=== PATIENT | female | born 1950 | race Caucasian/White ===

== ENCOUNTER → 2016-11-15 | Outpatient (CLI) | payer MEDICARE, OTHER ==
[~2016-11-15] MED LIST: ASP81TEC PO; CHOL10003 PO; DULO60CA6 PO; ESTR1TAB; HYDR1TAB8 OP; LISI10TA PO; LISI1TAB10 PO; LVT.05T PO; NFMET1000 PO; OLME20TA5; SITA1TAB6 PO; SULF1TAB35 PO
--- NOTE | 2016-11-15 14:46 | Diagnostic Imaging Report ---
PROCEDURE: MRI right joint upper extremity without contrast. TECHNIQUE: Multiplanar, multisequence non contrast-enhanced MRI of the right upper extremity was accomplished. INDICATION: Right shoulder pain. FINDINGS: There is susceptibility artifact seen in the humeral head related to metallic anchors from prior rotator cuff repair. There is no os acromiale or Hill-Sachs deformity. The acromioclavicular joint demonstrates prominent capsular hypertrophy with small inferior osteophytes. There is slight superior subluxation of the humeral head compared to the glenoid. There is mild distention of the subacromial subdeltoid bursa. There is increased signal in the distal infraspinatus and supraspinatus tendons compatible with undersurface and bursal-sided partial tears. There is also a prominent intrasubstance tear with partial central fibrous retraction seen and fluid within the infraspinatus tendon, best seen on oblique coronal image #10. No significant full-thickness or retracted tear. The subscapularis tendon demonstrates undersurface partial tears. There is mild subluxation of the long head biceps tendon abutting the medial aspect of the bicipital groove and associated with increased signal in the tendon itself suggestive of tendinosis or partial tear. There is a small glenohumeral joint effusion. There is fraying suggested along the labrum suggestive of labrum degeneration. The muscle bulk around the shoulder demonstrates no significant atrophy. IMPRESSION: 1. High-grade partial tears in the supraspinatus and infraspinatus distal tendons. 2. Undersurface partial tears in the subscapularis tendon. 3. 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 Dictated by: Dictated on workstation # [id number]
== END ==
LOC: RAD 13:23
PROVIDERS: ATTEND Nurse Practitioner
DX: M75.111 Incomplete rotator cuff tear or rupture of right shoulder, not specified as traumatic (principal)
CPT/HCPCS: 73221

== ENCOUNTER → 2016-11-27 | Outpatient (CLI) | payer MEDICARE, OTHER ==
[2016-11-27 13:51] LABS: BASOPHILS # (AUTO) 0.1 10^3/uL (0.0-0.1); BASOPHILS % (AUTO) 1 % (0-10); EOSINOPHILS # (AUTO) 0.2 10^3/uL (0.0-0.3); EOSINOPHILS % (AUTO) 2 % (0-10); LYMPHOCYTES # (AUTO) 2.6 X 10^3 (1.0-4.0); LYMPHOCYTES % (AUTO) 28 % (12-44); MEAN CORPUSCULAR HEMOGLOBIN 28 PG (25-34); MEAN CORPUSCULAR HGB CONC 32 G/DL (32-36); MEAN CORPUSCULAR VOLUME 87 FL (80-99); MEAN PLATELET VOLUME 10.6 FL (7.4-10.4); MONOCYTES # (AUTO) 0.8 X 10^3 (0.0-1.0); MONOCYTES % (AUTO) 9 % (0-12); NEUTROPHILS # (AUTO) 5.5 X 10^3 (1.8-7.8); NEUTROPHILS % (AUTO) 60 % (42-75); PLATELET COUNT 330 10^3/uL (130-400); RED BLOOD COUNT 5.05 10^6/uL (4.35-5.85); RED CELL DISTRIBUTION WIDTH 13.4 % (10.0-14.5); WHITE BLOOD COUNT 9.1 10^3/uL (4.3-11.0)
[2016-11-27 14:05] LABS: ALBUMIN 4.2 G/DL (3.2-4.5); BILIRUBIN,TOTAL 0.6 MG/DL (0.1-1.0); CALCIUM 9.5 MG/DL (8.5-10.1); CREATININE SERUM 1.06 MG/DL (0.60-1.30); POTASSIUM 4.3 MMOL/L (3.6-5.0); TOTAL PROTEIN 7.3 G/DL (6.4-8.2); hs C REACTIVE PROTEIN 3.46 MG/DL (0.00-0.50)
[2016-11-30 07:37] LABS: TULAREMIA ANTIBODY <1:20
[2016-11-30 10:54] LABS: LYME AB G M 0.07 Index (0.00-0.89)
[2016-11-30 14:59] LABS: LYME AB INTERP Negative (Negative)
[2016-11-30 15:15] LABS: EHRLICHIA CHAFFEENSIS G ABY <1:16 (<1:16)
[2016-11-30 15:23] LABS: IGG ROCKY MOUNTAIN SPOTTED FEV <1:16 (<1:16); IGM ROCKY MOUNTAIN SPOTTED FEV <1:10 (<1:10)
== END ==
LOC: LAB 13:33
DX: R53.83 Other fatigue (principal); M79.1 Myalgia; R51 Headache; W57.XXXA Bitten or stung by nonvenomous insect and other nonvenomous arthropods, initial encounter; Y99.8 Other external cause status
CPT/HCPCS: 36415; 80053; 85025; 86141; 86618; 86666; 86668; 86757

== ENCOUNTER → 2018-08-23 | Outpatient (CLI) | payer MEDICARE, OTHER ==
[~2018-08-23] MED LIST changes: +DULO60CA58 PO; +INSU100I10 SQ; +LEVO125T6 PO; +METF-399 PO
== END ==
LOC: PREOP 05:38
PROVIDERS: ATTEND Specialist
DX: Z01.818 Encounter for other preprocedural examination (principal)

== ENCOUNTER 2018-08-25 07:21 | Day surgery (SDC) | payer MEDICARE, OTHER ==
[~2018-08-25] VITALS: Ht 175.3 cm; Wt 97.5 kg
[2018-08-25] MEDS ORDERED: MOXIFLOXACIN OPHTH SOLN 5 MG/ML 0.3 ML SYRINGE OP ONE (07:30)
[2018-08-25] MEDS ORDERED: LIDOCAINE PF 1% 2 ML AMP IR PRN (07:30)
[2018-08-25] MEDS ORDERED: POVIDONE (BETADINE) OPHTH SOLN 5% 30 ML OP ONE (07:30)
[2018-08-25] MEDS ORDERED: TIMOLOL MALEATE 0.5% 5 ML (TIMOPTIC) BTL OU PRN (07:30)
[2018-08-25 07:34] VITALS: BP 150/83
[2018-08-25] MEDS: TETRACAINE 0.5% OPHTH SOLN 4 ML BTL (SINGLE DOSE ONLY) OU PRN ×4 (07:43→08:10)
[2018-08-25] MEDS: PHENYLEPHRINE 10% OPHTH (NEO-SYN) 5 ML BTL OU SCH ×3 (07:54→08:10)
[2018-08-25] MEDS: CYCLOPENTOLATE 1% (CYCLOGYL) 2 ML DROPS OP SCH ×3 (07:56→08:10)
--- NOTE | 2018-08-25 08:17 | Ophthalmologist Pre-Op Note ---
Pre-Operative Progress Note H&P Reviewed The H&P was reviewed, patient examined and no changes noted. Date H&P Reviewed: Aug 25, 2018 Time H&P Reviewed: 08:17 Pre-Op Dx Cataract, Left Eye JUDY MARTINEZ MD Aug 25, 2018 08:17
[2018-08-25] MEDS ORDERED: MIDAZOLAM 2 MG/2 ML (VERSED) VIAL ONE (08:21)
[2018-08-25] MEDS ORDERED: acetaZOLAMIDE ER 500 MG CAP (DIAMOX SEQUELS) PO ONE (08:30)
--- NOTE | 2018-08-25 08:39 | Ophthalmology Operative Report ---
Cataract removal/placement IOL PREOPERATIVE DIAGNOSIS: Cataract Left Eye POSTOPERATIVE DIAGNOSIS: Cataract Left Eye PROCEDURE: Cataract removal and placement of posterior chamber implant, left eye SURGEON: Kirk Martinez ANESTHESIA: Topical with sedation COMPLICATIONS: None ESTIMATED BLOOD LOSS: Minimal DESCRIPTION OF PROCEDURE: After proper informed consent was obtained, the patient, a 68 female, was taken to the Operating Room and the left eye was anesthetized with tetracaine. The left eye was then prepped and draped in the usual manner. A wire lid speculum was placed. A paracentesis was made at the left hand position. Preservative free lidocaine was injected into the anterior chamber followed by viscoelastic. A clear corneal incision was made in the temporal position. A capsulorrhexis was preformed and the central nuclear and cortical material were removed. The posterior capsule was polished and an Mainor 24.0 [id number] was placed into the capsular bag. The residual viscoelastic was aspirated and balanced saline solution was injected into the anterior chamber. Moxifloxacin was injected into the anterior chamber. The wound was checked and found to be water tight. The patient tolerated the procedure well without complications. KIRK MARTINEZ MD Aug 25, 2018 08:39
[2018-08-25 08:50] VITALS: BP 139/87
--- NOTE | 2018-08-25 12:12 | Anesthesia-General Post-Op ---
MAC Patient Condition Mental Status/LOC: Same as Preop Cardiovascular: Satisfactory Nausea/Vomiting: Absent Respiratory: Satisfactory Pain: Controlled Complications: Absent Post Op Complications Complications None Follow Up Care/Instructions Patient Instructions None needed. Anesthesiology Discharge Order Discharge Order Patient is doing well, no complaints, stable vital signs, no apparent adverse anesthesia problems. No complications reported per nursing. JAXON BRICENO CRNA Aug 25, 2018 12:12
--- OUTSIDE RECORDS SUMMARY | 2018-08-27 08:23 | XMS REPORT | Encounter Summary ---
Author Author [facility] Organization [facility] Address Unknown Phone Unavailable Care Team Providers Care Automated Equipment Engineer Technician Name Role Phone Bradley Archer MD Unavailable Payam English MD Unavailable Neela May RN Unavailable Unavailable Megan Jamison DO Unavailable Grayson Daley MD Unavailable Rosalba Neumann RN Unavailable Unavailable Epifanio Cannon MD Unavailable Leia Huntley MD Unavailable Adelaide Flores Unavailable Unavailable Jessica Anthony RN Unavailable Unavailable Stephany Campos RN Unavailable Unavailable Pau Livingston RN Unavailable Unavailable Josephine Buckner RN Unavailable Unavailable Baldomero Parker MD Unavailable Unavailable Noelle Hong MD Unavailable Iker Soto MD PCP Reason for Visit * Auth/Cert Referred By Contact Referred To Contact Status Reason Specialty Diagnoses / Procedures Diagnoses Urge incontinence Urge incontinence [N39.41] P rocedures ME CYSTOURETHROSCOPY INJ CHEMODENERVATION BLADDER CYSTOSCOPY WITH BOTOX INJECTION OF BLADDER (200 UNITS) Encounter Details Care Team Description Date Type Department Rosa Arteaga CRNA [address] [facility] [id number] [place] [address] 06/09/2018 Anesthesia Main Operating Room Event Main [facility] 2nd fl [address] [place], [place] [id number] Anesthesia Record Responsible Anesthesiologist Anesthesia Start Time Anesthesia Stop Time Procedure Name Mitul Farrar MD 06/09/18 1517 06/09/18 1547 CYSTOSCOPY WITH BOTOX INJECTION OF BLADDER (200 UNITS) (N/A Bladder) Date Time Event Comment 1502 AN Equip Check 2017 1506 1516 Out of Pre Procedure 1517 Anes Start 1517 In Room 1519 An Start Data 1521 Start Supplemental O2 1522 Anesthesia Ready 1532 Proc Start 1544 an stop data 1547 Handoff to RN I completed my SBAR handoff to the receiving nurse. 1547 An Stop Meds Name Total lidocaine (2%) 200 mg/10mL Injection 60 mg syringe propofol (DIPRIVAN) 200 mg/ 20 mL 40 mg injection (VIAL) propofol (DIPRIVAN) infusion 186.24 mg lactated ringers infusion 500 mL * Name O2 N2O Inspired N2O * No blood administrations on file. Removal Type Details Placement Wounds 06/01/11; LO, M, LT, RT; Abdomen; 06/01/11 0000 by Gemma, (NOT for Surgical Incision Kiya, CAKE MIXER Pressure Injuries) Wounds 09/28/13; 1448; LT; Leg; Surgical 09/28/13 1448 by Homar, (NOT for Incision Luba, RN Pressure Injuries) Wounds 10/19/13; 0923; RT; Leg; Surgical 10/19/13 0923 by Fuentes, (NOT for Incision Maria, RN Pressure Injuries) Wounds 01/09/16; 0902; Perineum; Surgical 01/09/16 0902 by Balaji, (NOT for Incision Quiana, RN Pressure Injuries) Wounds 01/20/18; 1138; Perineum; Surgical 01/20/18 1138 by (NOT for Incision; no dressings Noelle Velarde, RN Pressure Injuries) 06/09/18 1635 by Eugenia Crump RN Peripheral 06/09/18; 1355; RN; L; Inner; Forearm 06/09/18 1355 by JAZLYN Boucher (inner wrist); 22 G; 1; Therapy FRANCOIS Lockett completed; 06/09/18; 1635 in this encounter Social History Date Tobacco Use Types Packs/Day Years Used Quit: 06/27/1992 Former Smoker Cigarettes 0.25 5 Smokeless Tobacco: Never Used Alcohol Use Drinks/Week oz/Week Comments No Sex Assigned at Date Recorded Not on file Industry Job Start Date Occupation Not on file Not on file Not on file Travel End Travel History Travel Start No recent travel history available. as of this encounter Plan of Treatment Not on fileas of this encounter Visit Diagnoses Not on filein this encounter Administered Medications Action Date Dose Rate Site Medication Order MAR Action 06/09/2018 3:17 PM QUENCHER OPERATOR lactated ringers infusion Given - New 1,000 mL, Intravenous, SEE ADMIN Bag INSTRUCTIONS, Starting Tue06/09/18 at 1536, Until Tue06/09/18 at 1838, Replace NPO loss per post anesthesia protocol with Lactated Ringers or Normal Saline unless otherwise ordered by physician., PACU (only) 06/09/2018 3:20 PM QUENCHER OPERATOR 60 mg lidocaine (PF) injection Given INTRA-PROCEDURE MED, Starting Tue06/09/18 at 1520, Until Tue06/09/18 at 1549, Anesthesia Intra-op 06/09/2018 3:32 PM QUENCHER OPERATOR 20,000 mcg propofol (DIPRIVAN) infusion Bolus 50 mL, Intravenous, INTRA-PROCEDURE MED(CONT), Starting Tue06/09/18 at 1522, Until Tue06/09/18 at 1549, Anesthesia Intra-op 100 mcg/kg/min 62.3 mL/hr Given - New Bag 06/09/2018 3:22 PM QUENCHER OPERATOR 06/09/2018 3:26 PM QUENCHER OPERATOR 20 mg propofol (DIPRIVAN) injection Given INTRA-PROCEDURE MED, Starting Tue06/09/18 at 1522, Until Tue06/09/18 at 1549, Anesthesia Intra-op 20 mg Given 06/09/2018 3:22 PM QUENCHER OPERATOR in this encounter
--- OUTSIDE RECORDS SUMMARY | 2018-08-27 08:23 | XMS REPORT | Encounter Summary ---
Author Author [facility] Organization [facility] Address Unknown Phone Unavailable Care Team Providers Care Outpatient Coding Specialist Name Role Phone Bradley Archer MD Unavailable [...] Soto MD PCP Reason for Visit * Reason Comments Medication Refill Encounter Details Care Team Description Date Type Department Eladia Fritz MD [address] [facility] [address] [place] [address] Overactive bladder 08/03/2018 Refill [facility] Level 2A [address] [place] [address] Social History Date Tobacco Use Types Packs/Day [...] on fileas of this encounter Visit Diagnoses Diagnosis Overactive bladder Hypertonicity of bladder in this encounter
--- OUTSIDE RECORDS SUMMARY | 2018-08-27 08:23 | XMS REPORT | Encounter Summary ---
Author Author [facility] Organization [facility] Address Unknown Phone Unavailable Care Team Providers Care Specialty Transformer Assembler Name Role Phone Bradley Archer MD Unavailable [...] Urge incontinence Urge incontinence [N39.41] P rocedures [place] CYSTOURETHROSCOPY INJ CHEMODENERVATION BLADDER CYSTOSCOPY WITH BOTOX INJECTION OF BLADDER (200 UNITS) Encounter Details Care Team Description Date Type Department Eladia Fritz MD [address] [facility] [address] [place] [address] CYSTOSCOPY WITH BOTOX INJECTION OF BLADDER (200 UNITS) 06/09/2018 Surgery Main Operating Room [facility] 2nd ma [address] [place] [address] Social History Date Tobacco Use Types Packs/Day Years Used Quit: 06/27/1992 Former Smoker Cigarettes 0.25 5 Smokeless Tobacco: Never Used Alcohol Use Drinks/Week oz/Week Comments No Sex Assigned at Date Recorded Not on file Industry Job Start Date Occupation Not on file Not on file Not on file Travel End Travel History Travel Start No recent travel history available. as of this encounter Last Filed Vital Signs Time Taken Vital Sign Reading 06/09/2018 4:00 PM SANITARIAN Blood Pressure 104/60 06/09/2018 4:00 PM SANITARIAN Pulse 66 06/09/2018 4:00 PM SANITARIAN Temperature 36.9 C (98.4 F) - Respiratory Rate - 06/09/2018 4:00 PM SANITARIAN Oxygen Saturation 96% - Inhaled Oxygen - Concentration 06/09/2018 1:40 PM SANITARIAN Weight 103.9 kg (229 lb) 06/09/2018 1:40 PM SANITARIAN Height 175.3 cm (5' 9") 06/09/2018 1:40 PM SANITARIAN Body Mass Index 33.82 in this encounter Medications at Time of Discharge Start Date End Date Medication Sig Dispensed Refills 08/09/2017 acetaminophen (TYLENOL Take 1 tablet 0 EXTRA STRENGTH) 500 mg by mouth tablet every 6 hours as needed for Pain. Max of 4,000 mg of acetaminophen in [address] (CYMBALTA) Take 60 mg by 0 60 mg PO capsule mouth daily. Takes in am insulin glargine (LANTUS Inject 28 0 SOLOSTAR) 100 unit/mL (3 Units into mL) injection PEN area(s) as directed at bedtime daily. Indications: TYPE 2 DIABETES MELLITUS levothyroxine (SYNTHROID) Take 125 mcg 0 125 mcg PO tablet by mouth daily. lisinopril/hydrochlorothi Take 1 Dose 0 azide (ZESTORETIC) 20/25 by mouth tablet 1 Dose daily. metFORMIN (GLUCOPHAGE) Take 1,000 mg 0 1,000 mg tablet by mouth twice daily with meals. OMEPRAZOLE/SODIUM Take 1 Tab by 0 BICARBONATE (ZEGERID OTC mouth daily PO) as needed. 06/09/2018 oxyCODONE (ROXICODONE, Take one 5 tablet 0 OXY-IR) 5 mg tablet tablet by mouth every 4 hours as needed for Pain 08/18/2017 08/03/2018 oxybutynin chloride Take 1 tablet 90 tablet 3 (DITROPAN) 5 mg by mouth at tabletIndications: bedtime Overactive bladder daily. as of this encounter Plan of Treatment Not on fileas of this encounter Procedures Comments Procedure Name Priority Date/Time Associated Diagnosis CYSTOURETHROSCOPY WITH 06/09/2018 Urge incontinence INJECTION FOR 3:56 PM SANITARIAN CHEMODENERVATION OF THE BLADDER POC GLUCOSE 06/09/2018 3:49 PM SANITARIAN POC GLUCOSE 06/09/2018 1:55 PM SANITARIAN TELEMETRY STRIPS-SCAN 06/09/2018 12:00 AM SANITARIAN in this encounter Results * POC GLUCOSE (06/09/2018 3:49 PM SANITARIAN) Glucose, POC 86 70 - 100 MG/DL [facility] Performing Organization Address [facility] Phone [facility] [address] [place] [address] * POC GLUCOSE (06/09/2018 1:55 PM SANITARIAN) Glucose, POC 96 70 - 100 MG/DL [facility] Performing Organization Address [facility] [address] [place] [phone] * TELEMETRY STRIPS-SCAN (06/09/2018 12:00 AM SANITARIAN) Narrative Performed At Ordered by an unspecified provider. in this encounter Visit Diagnoses Diagnosis Urge incontinence in this encounter Admitting Diagnoses Diagnosis Urge incontinence in this encounter Administered Medications Action Date Dose Rate Site Medication Order MAR Action lactated ringers infusion 1,000 mL, 1,000 mL, Intravenous, at 20 mL/hr, CONTINUOUS, Starting Tue06/09/18 at 1345, Until Tue06/09/18 at 1838, Pre-Op 06/09/2018 3:17 PM SANITARIAN lactated ringers infusion Given - New 1,000 mL, Intravenous, SEE ADMIN Bag INSTRUCTIONS, Starting Tue06/09/18 at 1536, Until Tue06/09/18 at 1838, Replace NPO loss per post anesthesia protocol with Lactated Ringers or Normal Saline unless otherwise ordered by physician., PACU (only) 06/09/2018 3:33 PM SANITARIAN 20 mL lidocaine (XYLOCAINE) 2 % jelly Given (URO-JET) INTRA-PROCEDURE MED, Starting Tue06/09/18 at 1533, Until Tue06/09/18 at 1545, Intra-op lidocaine PF 1% (10 mg/mL) injection 0.1-2 mL 0.1-2 mL, Injection, NEEDED, Starting Tue06/09/18 at 1424, Until Tue06/09/18 at 1838, Other..., for IV insertion, Pre-Op 06/09/2018 3:45 PM SANITARIAN 200 Units ONAbotulinum toxin A (BOTOX) injection Given INTRA-PROCEDURE MED, Starting Tue06/09/18 at 1545, Until Tue06/09/18 at 1545, Intra-op 06/09/2018 2:00 PM SANITARIAN 1,000 mL 20 mL/hr sodium chloride 0.9 % infusion Given - New 1,000 mL, 1,000 mL, Intravenous, at 20 Bag mL/hr, ONCE, 1 dose, Tue06/09/18 at 1330, Pre-Op 06/09/2018 2:00 PM SANITARIAN 1,000 mL 20 mL/hr sodium chloride 0.9 % infusion Given - New 1,000 mL, 1,000 mL, Intravenous, at 20 Bag mL/hr, CONTINUOUS, Starting Tue06/09/18 at 1415, Until Tue06/09/18 at 1838, Pre-Op 06/09/2018 3:33 PM SANITARIAN 3,000 mL sodium chloride 0.9 % irrigation bag Given INTRA-PROCEDURE MED, Starting Tue06/09/18 at 1533, Until Tue06/09/18 at 1545, Intra-op in this encounter
--- OUTSIDE RECORDS SUMMARY | 2018-08-27 08:23 | XMS REPORT | Clinical Summary ---
Author Author [facility] Organization [facility] Address Unknown Phone Unavailable Care Team Providers Care Lay Out Maker Name Role Phone Bradley Archer MD Unavailable [...] Hong MD Unavailable Iker Soto MD PCP Source Comments Some departments are not documenting in the electronic medical record. If you do not see the information that you expected, contact Release of Information in the Health Information Management department at [phone] for further assistance in locating additional records.[facility] Allergies No Known Allergies Medications End Date Status Medication Sig Dispensed Refills Start Date Active levothyroxine (SYNTHROID) Take 125 mcg 0 125 mcg PO tablet by mouth daily. Active lisinopril/hydrochlorothi Take 1 Dose 0 azide (ZESTORETIC) 20/25 by mouth tablet 1 Dose daily. Active duloxetine DR (CYMBALTA) Take 60 mg by 0 60 mg PO capsule mouth daily. Takes in am Active OMEPRAZOLE/SODIUM Take 1 Tab by 0 BICARBONATE (ZEGERID OTC mouth daily PO) as needed. Active metFORMIN (GLUCOPHAGE) Take 1,000 mg 0 1,000 mg tablet by mouth twice daily with meals. Active insulin glargine (LANTUS Inject 28 0 SOLOSTAR) 100 unit/mL (3 Units into mL) injection PEN area(s) as directed at bedtime daily. Indications: TYPE 2 DIABETES MELLITUS Active acetaminophen (TYLENOL Take 1 tablet 0 EXTRA STRENGTH) 500 mg by mouth 8 tablet every 6 hours as needed for Pain. Max of 4,000 mg of acetaminophen in 24 hours. Active oxyCODONE (ROXICODONE, Take one 5 tablet 0 OXY-IR) 5 mg tablet tablet by 8 mouth every 4 hours as needed for Pain Active oxybutynin chloride TAKE 1 TABLET 90 tablet 3 (DITROPAN) 5 mg AT BEDTIME 9 tabletIndications: Overactive bladder 08/03/2018 Discontinued oxybutynin chloride Take 1 tablet 90 tablet 3 (DITROPAN) 5 mg by mouth at 8 tabletIndications: bedtime Overactive bladder daily. Active Problems Problem Noted Date Urge incontinence 01/20/2018 Overview: Added automatically from request for surgery [id number] Overactive bladder 02/11/2017 Overview: Added automatically from request for surgery [id number] Elective procedure for unacceptable cosmetic appearance 08/31/2016 Dermatofibroma of lower leg 02/18/2015 Mixed urge and stress incontinence 10/02/2014 Overview: Patient s/p abdominoplasty, SSLF, rectus PVS 06/02/11 Now with complaints of CORKY, also significant fecal voiding issues. Trialed sanctura 60mg x 1 month-> urgency and UUI improved in day, yet not night UDS +/- pessary revealed large capacity; complete emptying; +LPP with small leak; DO with large volume leak Botox 100u (12/06/14): improved daytime urgency and UUI, yet night continues botox 150u (06/10/15): urgency and daytime UUI resolved; nocturia down to only once nightly with occasional UUI at night L ast Assessment & Plan: OR for botox 150u on 01/09/16 ERRONEOUS ENCOUNTER--DISREGARD 05/11/2012 Varicose veins of lower extremities with other complications 11/23/2011 Pain in limb 11/23/2011 Incontinence overflow, stress female 06/24/2011 Diabetes mellitus 06/01/2011 Depression 06/01/2011 Hypothyroidism 06/01/2011 Hypertension 06/01/2011 Other plastic surgery for unacceptable cosmetic appearance 05/25/2011 Encounters Care Team Description Date Type Specialty Eladia Fritz MD Overactive bladder 08/03/2018 Refill Urology Eladia Fritz MD CYSTOSCOPY WITH BOTOX INJECTION OF BLADDER (200 UNITS) 06/09/2018 Surgery Rosa Arteaga, PERFORATING MACHINE OPERATOR 06/09/2018 Anesthesia Event Eladia Fritz MD Urge incontinence 06/09/2018 Hospital Encounter from Last 3 Months Family History Medical History Relation Name Comments Cancer Father Thyroid Disease Mother Relation Name Status Comments Father Mother Social History Date Tobacco Use Types Packs/Day Years Used Quit: 06/27/1992 Former Smoker Cigarettes 0.25 5 Smokeless Tobacco: Never Used Tobacco Cessation: Counseling Given: Yes Alcohol Use Drinks/Week oz/Week Comments No Sex Assigned at Date Recorded Not on file Industry Job Start Date Occupation Not on file Not on file Not on file Travel End Travel History Travel Start No recent travel history available. Last Filed Vital Signs Time Taken Vital Sign Reading 06/09/2018 4:00 PM FANS CLERK Blood Pressure 104/60 06/09/2018 4:00 PM FANS CLERK Pulse 66 06/09/2018 4:00 PM FANS CLERK Temperature 36.9 C (98.4 F) 03/19/2015 8:35 AM CDT Respiratory Rate 14 06/09/2018 4:00 PM FANS CLERK Oxygen Saturation 96% - Inhaled Oxygen - Concentration 06/09/2018 1:40 PM FANS CLERK Weight 103.9 kg (229 lb) 06/09/2018 1:40 PM FANS CLERK Height 175.3 cm (5' 9") 06/09/2018 1:40 PM FANS CLERK Body Mass Index 33.82 Plan of Treatment Health Maintenance Due Date Last Done Comments HEPATITIS C SCREENING 1951 DILATED EYE EXAM 1969 DTAP/TDAP VACCINES (1 - 1969 Tdap) FOOT EXAM 1969 HBA1C 1969 SHINGLES RECOMBINANT 2001 VACCINE (1 of 2) BREAST CANCER SCREENING 05/11/2012 05/11/2011 PHYSICAL (COMPREHENSIVE) 05/25/2012 05/25/2011 EXAM OSTEOPOROSIS 2016 SCREENING/MONITORING PNEUMONIA (PCV13/PPSV23) 2016 VACCINES (1 of 2 - PCV13) INFLUENZA VACCINE 01/25/2019 COLORECTAL CANCER 02/24/2025 02/24/2015, 12/23/2010, 10/13/2010 SCREENING Procedures Comments Procedure Name Priority Date/Time Associated Diagnosis CYSTOURETHROSCOPY WITH 06/09/2018 Urge incontinence INJECTION FOR 3:56 PM FANS CLERK CHEMODENERVATION OF THE BLADDER POC GLUCOSE 06/09/2018 3:49 PM FANS CLERK POC GLUCOSE 06/09/2018 1:55 PM FANS CLERK TELEMETRY STRIPS-SCAN 06/09/2018 12:00 AM FANS CLERK from Last 3 Months Results * POC GLUCOSE (06/09/2018 3:49 PM FANS CLERK) Only the most recent of 2 results within the time period is included. Glucose, POC 86 70 - 100 MG/DL [facility] Performing Organization Address [facility] [address] [place] [address] * TELEMETRY STRIPS-SCAN (06/09/2018 12:00 AM FANS CLERK) Narrative Performed At Ordered by an unspecified provider. from Last 3 Months Insurance Payer Benefit Subscriber ID Type Phone Address Plan / Group MEDICARE MEDICARE xxxxxxxxxx Medicare PART A AND B AETNA AETNA xxxxxxxxxx SUPPLEMENT Advance Directives Patient has advance care planning documents, and code status on file. For more information, please contact: [facility] [address] [place] [address] Date Inactivated Comments Code Status Date Activated 06/05/2011 7:27 PM Full Code 06/01/2011 9:51 PM Provider has discussed Code Status Yes w/Patient or Family?
--- OUTSIDE RECORDS SUMMARY | 2018-08-27 08:24 | XMS REPORT | Encounter Summary ---
Author Author [facility] Organization [facility] Address Unknown Phone Unavailable Care Team Providers Care Orchestra Director Name Role Phone Bradley Archer MD Unavailable [...] Urge incontinence Urge incontinence [N39.41] P rocedures NE CYSTOURETHROSCOPY INJ CHEMODENERVATION BLADDER CYSTOSCOPY WITH BOTOX INJECTION OF BLADDER (200 UNITS) Encounter Details Care Team Description Date Type Department Eladia Fritz MD [address] [facility] [address] [place] [address] Urge incontinence 06/09/2018 Hospital Main Operating Room Encounter [facility] Hospital 2nd fl [address] [place] [address] Social History Date Tobacco Use Types Packs/Day [...] Taken Vital Sign Reading 06/09/2018 4:00 PM AUTOCLAVE OPERATOR Blood Pressure 104/60 06/09/2018 4:00 PM AUTOCLAVE OPERATOR Pulse 66 06/09/2018 4:00 PM AUTOCLAVE OPERATOR Temperature 36.9 C (98.4 F) - Respiratory Rate - 06/09/2018 4:00 PM AUTOCLAVE OPERATOR Oxygen Saturation 96% - Inhaled Oxygen - Concentration 06/09/2018 1:40 PM AUTOCLAVE OPERATOR Weight 103.9 kg (229 lb) 06/09/2018 1:40 PM AUTOCLAVE OPERATOR Height 175.3 cm (5' 9") 06/09/2018 1:40 PM AUTOCLAVE OPERATOR Body Mass Index 33.82 in this encounter [...] Overactive bladder daily. as of this encounter Progress Notes * Chelsey Tijerina RN - 05/30/2018 11:40 AM AUTOCLAVE OPERATOR PAC phone triage completed with patient for surgery on 06/09/[address] Fritz. Medications, allergies and medical history reviewed and updated in chart. Had last surgery on 01/20/18 and denies changes to medical or functional status. She states her normal FBG averages 112-120 daily. Can climb 2 flights of stairs without becoming symptomatic. Denies chest pain, AVERY, palpitations or URI symptoms. No PAC visit indicated. Preop and medication instructions reviewed with patient. No vitamins or supplements for 14 days and no NSAIDS for 7 days before surgery. Will take normal dose of Lantus on evening before surgery and hold Lisinopril/HCTZ and Metformin on DOS. NPO after 11 pm the night before surgery but ok to drink water until 2 hours before arrival at hospital. Patient verbalized understanding and declined copy of instructions CLAVE OPERATOR in this encounter H&P Notes * Eladia Fritz MD - 06/09/2018 12:55 PM AUTOCLAVE OPERATOR Admission History and Physical Examination Name: Jaelyn Coe Admission Date: (Not on file) Assessment/Plan: Principal Problem: Urge incontinence Plan: - To OR for intradetrusor Botox injection, 200 units - Consented - Ancef fashion director party plan sales to OR __ Primary Care Physician: Iker Soto Chief Complaint: Incontinence History of Present Illness: Jaelyn Coe is a 68 y.o. female with an extensive urologic history, including Rectus fascial graft harvest, Transvaginal urethrolysis, Sacrospinous ligament fixation with Pelvicol graft, and Pubovaginal sling cystourethropexy with rectus fascial graft on 05/25/11, with plastic surgery performing abdominoplasty at same time for POP and incontinence. She had subsequent urge incontinence which has been managed with botox injections into the bladder. She lastunderwent botox injection 01/20/18. She states that this controlled her symptoms well for 4.5- 5 months. She had no issues with urinary retention after increasing her dose to 200 units. She denies any recent symptoms or concerns. I personally reviewed the patient's past medical history, surgical history, family history, social history, medications, and allergies. History of Present Illness Past Medical History: Diagnosis Date Bladder problem overactive bladder Depression (disease) DM (diabetes mellitus) (HCC) Hypertension Thyroid disease Urinary tract infection Past Surgical History: Procedure Laterality Date NE COLPOPEXY VAGINAL EXTRAPERITONEAL APPROACH 06/01/2011 NE SLING OPERATION STRESS INCONTINENCE 06/01/2011 NE TISSUE GRAFTS OTHER 06/01/2011 NE URETHROLSS TRVG SEC OPN W/CSTO 06/01/2011 CYSTOCELE REPAIR FOOT SURGERY bunionectomy & nerve clipped betw 2nd & 3rd toe HX SECTION HX KNEE SURGERY left PARTIAL THYROIDECTOMY RECTOCELE REPAIR ROTATOR CUFF REPAIR Family History Problem Relation Age of Onset Thyroid Disease Mother Cancer Father Social History Socioeconomic History Marital status: Spouse name: Not on file Number of children: Not on file Years of education: Not on file Highest education level: Not on file Social Needs Financial resource strain: Not on file Food insecurity - worry: Not on file Food insecurity - inability: Not on file Transportation needs - medical: Not on file Transportation needs - non-medical: Not on file Occupational History Not on file Tobacco Use Smoking status: Former Smoker Packs/day: 0.25 Years: 5.00 Pack years: 1.25 Types: Cigarettes Last attempt to quit: 06/27/1992 Years since quittin.9 Smokeless tobacco: Never Used Substance and Sexual Activity Alcohol use: No Drug use: No Sexual activity: Not Currently Other Topics Concern Not on file Social History Narrative Not on file Immunizations (includes history and patient reported): There is no immunization history on file for this patient. Allergies: Patient has no known allergies. Medications: No medications prior to admission. Review of Systems Constitution: Negative for chills and fever. Gastrointestinal: Negative for nausea and vomiting. Genitourinary: Positive for bladder incontinence, frequency and urgency. Negative for dysuria. All other systems reviewed and are negative. Physical Exam Constitutional: She is oriented to person, place, and time. She appears well- developed and well-nourished. HENT: Head: Normocephalic and atraumatic. Eyes: EOM are normal. Neck: Normal range of motion. Cardiovascular: Normal rate. Pulmonary/Chest: Effort normal. No respiratory distress. Musculoskeletal: Normal range of motion. Neurological: She is alert and oriented to person, place, and time. Skin: Skin is warm and dry. Psychiatric: She has a normal mood and affect. Her behavior is normal. Judgment and thought content normal. Vital Signs: Last Filed In 24 Hours Vital Signs: 24 Hour Range Lab/Radiology/Other Diagnostic Tests: 24-hour labs: No results found for this visit on 06/09/18 (from the past 24 hour(s)). Pertinent radiology reviewed. Rakan Pickens MD Pager [phone] ATTESTATION I personally performed the santacruz portions of the E/M visit, discussed case with resident and concur with resident documentation of history, physical exam, assessment, and treatment plan unless otherwise noted. Staff name: Eladia Fritz MD CLAVE OPERATOR in this encounter Miscellaneous Notes * Discharge Instructions - Eugenia Crump RN - 06/09/2018 4:31 PM AUTOCLAVE OPERATOR Discharge instructions reviewed with patient and patients , [facility] at bedside. All questions answered at this time. Discharge instructions and prescriptions given to [facility] upon discharge. CLAVE OPERATOR * Procedures (Immed Post or Bedside) - Eladia Fritz MD - 06/09/2018 3: 48 PM AUTOCLAVE OPERATOR Brief Operative Note Name: Jaelyn Coe is a 68 y.o. female : 1950 DATE OF OPERATION: 06/09/2018 Date: 06/09/2018 Preoperative Dx: Urge incontinence [N39.41] Post-op Diagnosis * Urge incontinence [N39.41] Procedure(s): CYSTOSCOPY WITH BOTOX INJECTION OF BLADDER (200 UNITS) Anesthesia Type: General Surgeon(s) and Role: * Eladia Fritz MD - Primary * Xuan Franco MD - Resident - Assisting Findings: Unremarkable injection of 200u of botox Estimated Blood Loss: No blood loss documented. Specimen(s) Removed/Disposition: * No specimens in log * Complications: None Implants: None Drains: None Disposition: PACU - stable Xuan Franco MD Pager [phone] ATTESTATION I performed this procedure with a resident. Staff name: Eladia Fritz MD CLAVE OPERATOR * Operative Report (Direct Entry) - Eladia Fritz MD - 06/09/2018 3:32 PM AUTOCLAVE OPERATOR OPERATIVE REPORT Name: Jaelyn Coe is a 68 y.o. female : 1950 DATE OF OPERATION: 06/09/2018 Surgeon(s) and Role: * Eladia Fritz MD - Primary * Xuan Franco MD - Resident - Assisting Preoperative Diagnosis: Urge incontinence [N39.41] Post-op Diagnosis * Urge incontinence [N39.41] Procedure(s): CYSTOSCOPY WITH BOTOX INJECTION OF BLADDER (200 UNITS) Anesthesia Type: General Indications For Procedure: 68yoF with hx of urge incontinence presents today for repeat botox injection of 200 units. Description and Findings of Operative Procedure: After obtaining informed consent, patient was brought back to the operating room and placed in the supine position. General anesthesia was induced smoothly without complication. A proper timeout was performed confirming proper patient, procedure, and laterality. Patient was moved to the dorsal lithotomy position. Patient was prepped and draped in the usual sterile fashion. All instruments were sterile. We began by placing the injection scope into the urethra and this is passed into the bladder with ease. 360 panendoscopy the bladder performance revealed no tumors stones or defects. There was no trabeculation noted. We then began to inject her Botox and were careful not to inject any large vessels. We used 200 units of Botox injected in 4 rows of 5. Patient tolerated this well afterwards there is noted to be hemostasis. The bladder was drained and patient was awoken from anesthesia. Patient was transferred to the PACU in stable condition. Dr. Fritz was present scrubbed and directed all santacruz portions of procedure. Estimated Blood Loss: No blood loss documented. Specimen(s) Removed/Disposition: * No specimens in log * Xuan Franco MD Pager [phone] ATTESTATION I performed this procedure with a resident. Staff name: Eladia Fritz MD CLAVE OPERATOR in this encounter Plan of Treatment Not on fileas of this encounter Procedures Comments Procedure Name Priority Date/Time Associated Diagnosis CYSTOURETHROSCOPY WITH 06/09/2018 Urge incontinence INJECTION FOR 3:56 PM AUTOCLAVE OPERATOR CHEMODENERVATION OF THE BLADDER POC GLUCOSE 06/09/2018 3:49 PM AUTOCLAVE OPERATOR POC GLUCOSE 06/09/2018 1:55 PM AUTOCLAVE OPERATOR TELEMETRY STRIPS-SCAN 06/09/2018 12:00 AM AUTOCLAVE OPERATOR in this encounter Results * POC GLUCOSE (06/09/2018 3:49 PM AUTOCLAVE OPERATOR) Glucose, POC 86 70 - 100 MG/DL [facility] Performing Organization Address [facility] Phone Number [facility] [address] [place] [address] * POC GLUCOSE (06/09/2018 1:55 PM AUTOCLAVE OPERATOR) Glucose, POC 96 70 - 100 MG/DL [facility] Performing Organization Address [facility] Phone Number [facility] [address] [phone] * TELEMETRY STRIPS-SCAN (06/09/2018 12:00 AM AUTOCLAVE OPERATOR) Narrative Performed At Ordered by an unspecified provider. in this encounter Visit Diagnoses Diagnosis Urge incontinence - Primary in this encounter Admitting Diagnoses Diagnosis Urge incontinence in this encounter Administered Medications Action Date Dose Rate Site Medication Order MAR Action lactated ringers infusion 1,000 mL, 1,000 mL, Intravenous, at 20 mL/hr, CONTINUOUS, Starting Tue06/09/18 at 1345, Until Tue06/09/18 at 1838, Pre-Op 06/09/2018 3:17 PM AUTOCLAVE OPERATOR lactated ringers infusion Given - New 1,000 mL, Intravenous, SEE ADMIN Bag INSTRUCTIONS, Starting Tue06/09/18 at 1536, Until Tue06/09/18 at 1838, Replace NPO loss per post anesthesia protocol with Lactated Ringers or Normal Saline unless otherwise ordered by physician., PACU (only) lidocaine PF 1% (10 mg/mL) injection 0.1-2 mL 0.1-2 mL, Injection, NEEDED, Starting Tue06/09/18 at 1424, Until Tue06/09/18 at 1838, Other..., for IV insertion, Pre-Op 06/09/2018 2:00 PM AUTOCLAVE OPERATOR 1,000 mL 20 mL/hr sodium chloride 0.9 % infusion Given - New 1,000 mL, 1,000 mL, Intravenous, at 20 Bag mL/hr, ONCE, 1 dose, Tue06/09/18 at 1330, Pre-Op 06/09/2018 2:00 PM AUTOCLAVE OPERATOR 1,000 mL 20 mL/hr sodium chloride 0.9 % infusion Given - New 1,000 mL, 1,000 mL, Intravenous, at 20 Bag mL/hr, CONTINUOUS, Starting Tue06/09/18 at 1415, Until Tue06/09/18 at 1838, Pre-Op in this encounter
--- OUTSIDE RECORDS SUMMARY | 2018-08-27 08:24 | XMS REPORT | Continuity of Care Document ---
Author Author [facility] Organization [facility] Address Unknown Phone Unavailable Allergies Active Description Code Type Severity Reaction Onset Reported/Identified Relationship to Patient Clinical Status Yes NO KNOWN DRUG ALLERGIES UNKNOWN NO KNOWN DRUG ALLERG Yes No Known Drug Allergies [id number] Drug Allergy Mild N/A 10/27/2008 Medications Medication Packaging Start Date Stop Date Route Dosage Sig HYDROCODONE/APAP 5MG/325MG TAB 5 MG/325MG (ALEX-TAB 5/325) TAB 01/22/2017 01/22/2017 [id number]&[id number] Problems Date Dx Coded Attending Type Code Diagnosis Diagnosed By 08/14/2012 Ot 244.9 HYPOTHYROIDISM NOS 08/14/2012 Ot 250.00 DIAB ROSA WO COMPL, TYPE II OR UNSPEC TY 08/14/2012 Ot 401.9 HYPERTENSION NOS 08/14/2012 Ot 412 OLD MYOCARDIAL INFARCT 08/14/2012 Ot 794.30 ABN CARDIOVASC STUDY NOS 08/14/2012 Ot V58.69 OTH MED,LT, CURRENT USE 09/02/2015 JAYJAY BAHNDARI APRN Ot G47.33 OBSTRUCTIVE SLEEP APNEA (ADULT) (PEDIATR 09/02/2015 JAYJAY BHANDARI APRN Ot G47.61 PERIODIC LIMB MOVEMENT DISORDER 09/02/2015 JAYJAY BHANDARI APRN Ot R06.83 SNORING 11/06/2016 Gila Banda 845.10 UNSPECIFIED SITE OF FOOT SPRAIN 11/06/2016 Gila Banda S93.601A UNSPECIFIED SPRAIN OF RIGHT FOOT, INITIAL ENCOUNTER 11/15/2016 Ot 785.1 PALPITATIONS 11/15/2016 Ot 785.2 CARDIAC MURMURS NEC 11/15/2016 Ot 424.0 MITRAL VALVE DISORDER 11/15/2016 Ot 429.3 CARDIOMEGALY 11/15/2016 Ot 785.1 PALPITATIONS 11/15/2016 Ot 785.2 CARDIAC MURMURS NEC 11/15/2016 REIN ORNELAS Ot 715.36 LOC OSTEOARTH NOS-L/LEG 11/15/2016 ERIN ORNELASP Ot 719.06 JOINT EFFUSION-L/LEG 11/15/2016 ERIN ORNELASP Ot 836.1 TEAR LAT MENISC KNEE-CUR 11/15/2016 ERIN ORNELASP Ot 844.1 SPRAIN MEDIAL COLLAT LIG 11/15/2016 ERIN ORNELAS RABBLE FURNACE TENDER Ot E000.8 OTHER EXTERNAL CAUSE STATUS 11/15/2016 ERIN ORNELAS Ot E849.6 ACCIDENT IN PUBLIC BLDG 11/15/2016 ERIN ORNELAS Ot E928.9 ACCIDENT NOS 11/17/2016 ERIN ORNELAS Ot M75.111 INCOMPLETE ROTATR-CUFF TEAR/RUPTR OF R S 11/21/2016 ERIN ORNELASP Ot M75.111 INCOMPLETE ROTATR-CUFF TEAR/RUPTR OF R S 11/29/2016 HUNG DIAZ QUOTATION CHECKER Ot M79.1 MYALGIA 11/29/2016 HUNG DIAZ QUOTATION CHECKER Ot R51 HEADACHE 11/29/2016 EMILY HUNG L QUOTATION CHECKER Ot R53.83 OTHER FATIGUE 11/29/2016 EMILY HUNG L QUOTATION CHECKER Ot W57.XXXA BIT/STUNG BY NONVENOM INSECT OTH NONVE 11/29/2016 EMILY HUNG L QUOTATION CHECKER Ot Y99.8 OTHER EXTERNAL CAUSE STATUS 12/08/2016 ERIN ORNELAS RABBLE FURNACE TENDER Ot M75.111 INCOMPLETE ROTATR-CUFF TEAR/RUPTR OF R S 12/21/2016 HUNG DIAZ QUOTATION CHECKER Ot M79.1 MYALGIA 12/21/2016 EMILY HUNG L QUOTATION CHECKER Ot R51 HEADACHE 12/21/2016 EMILY HUNG L QUOTATION CHECKER Ot R53.83 OTHER FATIGUE 12/21/2016 HUNG DIAZ QUOTATION CHECKER Ot W57.XXXA BIT/STUNG BY NONVENOM INSECT OTH NONVE 12/21/2016 EMILY HUNG L QUOTATION CHECKER Ot Y99.8 OTHER EXTERNAL CAUSE STATUS 01/22/2017 Quentin Inman 883.1 OPEN WOUND OF FINGERS, COMPLICATED 01/22/2017 Quentin Inman S61.213A LACERATION W/O FB OF L MID FINGER W/O DAMAGE TO NAIL, INIT 07/12/2017 Tiffany Reddy W 681.10 CELLULITIS AND ABSCESS OF TOE, UNSPECIFIED 07/12/2017 Tiffany Reddy W L03.031 CELLULITIS OF RIGHT TOE 12/27/2017 Iker Soto W 250.00 DIABETES MELLITUS WITHOUT MENTION OF COMPLICATION, TYPE II OR UNSPECIFIED TYPE, NOT STATED UNCONTROLLED 12/27/2017 Iker Soto W E11.9 TYPE 2 DIABETES MELLITUS WITHOUT COMPLICATIONS 12/27/2017 Iker Soto W 250.00 DIABETES MELLITUS WITHOUT MENTION OF COMPLICATION, TYPE II OR UNSPECIFIED TYPE, NOT STATED UNCONTROLLED 12/27/2017 Iker Soto E11.9 TYPE 2 DIABETES MELLITUS WITHOUT COMPLICATIONS 08/24/2018 JUAN RIGGS, JUDY Preston Ot Z01.818 ENCOUNTER FOR OTHER PREPROCEDURAL EXAMIN 08/25/2018 ERIN ORNELASP Ot 715.36 LOC OSTEOARTH NOS-L/LEG 08/25/2018 ERIN ORNELAS RABBLE FURNACE TENDER Ot 719.06 JOINT EFFUSION-L/LEG 08/25/2018 ERIN ORNELAS RABBLE FURNACE TENDER Ot 836.1 TEAR LAT MENISC KNEE-CUR 08/25/2018 ERIN ORNELAS RABBLE FURNACE TENDER Ot 844.1 SPRAIN MEDIAL COLLAT LIG 08/25/2018 ERIN ORNELAS RABBLE FURNACE TENDER Ot E000.8 OTHER EXTERNAL CAUSE STATUS 08/25/2018 ERIN ORNELAS RABBLE FURNACE TENDER Ot E849.6 ACCIDENT IN PUBLIC BLDG 08/25/2018 ERIN ORNELAS RABBLE FURNACE TENDER Ot E928.9 ACCIDENT NOS 08/25/2018 ERIN ORNELAS RABBLE FURNACE TENDER Ot M75.111 INCOMPLETE ROTATR-CUFF TEAR/RUPTR OF R S 08/25/2018 HUNG DIAZ QUOTATION CHECKER Ot M79.1 MYALGIA 08/25/2018 HUNG DIAZ QUOTATION CHECKER Ot R51 HEADACHE 08/25/2018 HUNG DIAZ QUOTATION CHECKER Ot R53.83 OTHER FATIGUE 08/25/2018 HUNG DIAZ QUOTATION CHECKER Ot W57.XXXA BIT/STUNG BY NONVENOM INSECT OTH NONVE 08/25/2018 HUNG DIAZ QUOTATION CHECKER Ot Y99.8 OTHER EXTERNAL CAUSE STATUS 08/25/2018 JUAN RIGGS, JUDY L Ot Z01.818 ENCOUNTER FOR OTHER PREPROCEDURAL EXAMIN Procedures There is no data. Results Test Result Range Hemoglobin A1C - 05/14/16 10:45 % A1C 7.20 % 5.40-6.60 AvGlu 179 mg/dL 70-110 Urine Culture - 05/14/16 10:45 PRELIM CULTURE RESULTS No Growth 24 hours FINAL CULTURE RESULTS No Growth 48 hours MEDIA PLATED Setup at 14:03 on 05/14/2016 CULTURE SOURCE [facility] collection Urine Culture - 06/07/16 13:30 PRELIM CULTURE RESULTS >100,000 Gram Negative [id number],[id number],000 Gram Positive [id number] / ID to Follow MEDIA PLATED Setup at 15:39 on 06/07/2016 CULTURE SOURCE clinic collection Sensi - 06/07/16 13:30 Ampicillin/Sulbactam <=8/4 Ampicillin <=2 Amoxicillin/K Clavulanate <=4/2 Ceftriaxone >32 Clindamycin >4 Cefoxitin Screen N/R Ciprofloxacin <=1 Daptomycin <=0.5 Erythromycin 1 Nitrofurantoin <=32 Gentamicin >8 Gentamicin Synergy Screen <=500 Inducible Clindamycin N/R Levofloxacin <=1 Linezolid 2 Moxifloxacin <=0.5 Oxacillin >2 Penicillin 2 Rifampin <=1 Streptomycin Synergy <=1000 Synercid >2 Trimethoprim/ Sulfamethoxazole <=0.5/9.5 Tetracycline >8 Vancomycin 1 FINAL CULTURE RESULTS Enterococcus faecalis (Isolate 2) Sensi - 06/07/16 13:30 FINAL CULTURE RESULTS Escherichia coli (Isolate 1) Ampicillin/Sulbactam <=8/4 Ampicillin <=8 Amoxicillin/K Clavulanate <=8/4 Ceftriaxone <=8 Ciprofloxacin <=1 Nitrofurantoin <=32 Gentamicin <=4 Levofloxacin <=2 Trimethoprim/ Sulfamethoxazole <=2/38 Tetracycline <=4 Amikacin <=16 Aztreonam <=8 Ceftazidime <=1 Ceftazidime/K Clavulanate <=0.25 Cephalothin 16 Cefotaxime <=2 Cefotaxime/K Clavulanate <=0.5 Cefoxitin <=8 Cefazolin <=8 Cefepime <=8 Cefuroxime <=4 Ertapenem <=1 Imipenem <=4 Meropenem <=4 Piperacillin/Tazobactam <=16 Piperacillin <=16 Tigecycline <=2 Tobramycin <=4 Urinalysis - 08/03/16 10:00 Icotest N/A Negative Urine Volume Urine Volume Sufficient (10mL) Urine-Appearance Clear Clear Urine-Bacteria Trace Urine-Bilirubin Negative Negative Urine-Blood Negative Negative Urine-Color Yellow Colorless-Lt. Yellow Urine-Epithelial Cells 10-20/HPF Urine-Glucose Negative Negative Urine-Ketones Negative Negative Urine-Leukocytes Trace Negative Urine-Nitrite Negative Negative Urine-Other Culture to follow Urine-pH 8.5 5-8.5 Urine-Protein Negative Negative Urine-RBC Rare/HPF Urine-Specific [place] 1.015 1.000-1.030 Urine-WBC 10-20/HPF Urobilinogen 0.2 E.U./dL 0.2-1.0 Urine Culture - 08/03/16 10:00 FINAL CULTURE RESULTS 10,000-20,000 Gram Positive Mixed Maureen [id number] Skin Contaminant [id number] Further Workup done MEDIA PLATED Setup at 1500 on 08/03/2016 CULTURE SOURCE urine Complete blood count (CBC) with automated white blood cell (WBC) differential - 11/27/16 13:42 Blood leukocytes automated count (number/volume) 9.1 10*3/uL 4.3-11.0 Blood erythrocytes automated count (number/volume) 5.05 10*6/uL 4.35-5.85 Venous blood hemoglobin measurement (mass/volume) 14.0 g/dL 11.5-16.0 Blood hematocrit (volume fraction) 44 % 35-52 Automated erythrocyte mean corpuscular volume 87 [foz_us] 80-99 Automated erythrocyte mean corpuscular hemoglobin (mass per erythrocyte) 28 pg 25-34 Automated erythrocyte mean corpuscular hemoglobin concentration measurement ( mass/volume) 32 g/dL 32-36 Automated erythrocyte distribution width ratio 13.4 % 10.0-14.5 Automated blood platelet count (count/volume) 330 10*3/uL 130-400 Automated blood platelet mean volume measurement 10.6 [foz_us] 7.4-10.4 Automated blood neutrophils/100 leukocytes 60 % 42-75 Automated blood lymphocytes/100 leukocytes 28 % 12-44 Blood monocytes/100 leukocytes 9 % 0-12 Automated blood eosinophils/100 leukocytes 2 % 0-10 Automated blood basophils/100 leukocytes 1 % 0-10 Blood neutrophils automated count (number/volume) 5.5 10*3 1.8-7.8 Blood lymphocytes automated count (number/volume) 2.6 10*3 1.0-4.0 Blood monocytes automated count (number/volume) 0.8 10*3 0.0-1.0 Automated eosinophil count 0.2 10*3/uL 0.0-0.3 Automated blood basophil count (count/volume) 0.1 10*3/uL 0.0-0.1 Comprehensive metabolic panel - 11/27/16 13:42 Serum or plasma sodium measurement (moles/volume) 139 mmol/L 135-145 Serum or plasma potassium measurement (moles/volume) 4.3 mmol/L 3.6-5.0 Serum or plasma chloride measurement (moles/volume) 103 mmol/L 98-107 Carbon dioxide 23 mmol/L 21-32 Serum or plasma anion gap determination (moles/volume) 13 mmol/L 5-14 Serum or plasma urea nitrogen measurement (mass/volume) 22 mg/dL 7-18 Serum or plasma creatinine measurement (mass/volume) 1.06 mg/dL 0.60-1.30 Serum or plasma urea nitrogen/creatinine mass ratio 21 NRG Serum or plasma creatinine measurement with calculation of estimated glomerular filtration rate 52 NRG Serum or plasma glucose measurement (mass/volume) 149 mg/dL 70-105 Serum or plasma calcium measurement (mass/volume) 9.5 mg/dL 8.5-10.1 Serum or plasma total bilirubin measurement (mass/volume) 0.6 mg/dL 0.1-1.0 Serum or plasma alkaline phosphatase measurement (enzymatic activity/volume) 57 U/L 40-136 Serum or plasma aspartate aminotransferase measurement (enzymatic activity/ volume) 20 U/L 5-34 Serum or plasma alanine aminotransferase measurement (enzymatic activity/volume ) 21 U/L 0-55 Serum or plasma protein measurement (mass/volume) 7.3 g/dL 6.4-8.2 Serum or plasma albumin measurement (mass/volume) 4.2 g/dL 3.2-4.5 Serum or plasma C reactive protein measurement (mass/volume) - 11/27/16 13:42 Serum or plasma C reactive protein measurement (mass/volume) 3.46 mg /dL 0.00-0.50 Tick identification panel - 11/27/16 13:42 Serum Ehrlichia chaffeensis IgG antibody detection <1:16 <1:16 Serum Ehrlichia chaffeensis IgM antibody detection <1:10 <1:10 Serum Rickettsia rickettsii IgG antibody assay (units/volume) < <1:16 [place] spotted fever panel < <1:10 Francisella tularensis antibody assay <1:20 NRG LYME AB G M 0.07 % 0.00-0.89 Interpretation of Lyme disease antibody assay Negative Negative Other Culture - 07/11/17 15:23 PRELIM CULTURE RESULTS Abundant Gram Positive - Coag Positive Staph - HANS / ID to Follow MEDIA PLATED Setup at 15:42 on 07/12/2017 Sensi - 07/11/17 15:23 FINAL CULTURE RESULTS Methicillin Resistant Staphylococcus aureus ( Isolate 1) Ampicillin/Sulbactam <=8/4 Ampicillin >8 Amoxicillin/K Clavulanate >4/2 Ceftriaxone <=8 Clindamycin <=0.5 Cefoxitin Screen >4 Ciprofloxacin >2 Daptomycin <=0.5 Erythromycin >4 Nitrofurantoin <=32 Gentamicin <=4 Gentamicin Synergy Screen N/R Inducible Clindamycin >4/0.5 Levofloxacin 4 Linezolid <=1 Moxifloxacin 2 Oxacillin >2 Penicillin >8 Rifampin <=1 Streptomycin Synergy N/R Synercid <=0.5 Trimethoprim/ Sulfamethoxazole <=0.5/9.5 Tetracycline <=4 Vancomycin 1 Hemoglobin A1C - 12/27/17 11:00 % A1C 8.10 % 5.40-6.60 AvGlu 210 mg/dL 70-110 Lipid Panel - 12/27/17 11:00 C/HDL 5.6 3.7-6.7 Cholesterol 222 mg/dL 100-240 HDL 40 mg/dL 30-85 LDL-Calculated 141 mg/dL 0-100 Trig 206 mg/dL 35-160 VLDL 41 mg/dL 0-42 Encounters ACCT No. Visit Date/Time Discharge Status Pt. Type Provider Facility Loc./Unit Complaint [id number] 08/25/2018 07:21:00 08/25/2018 08:50:00 DIS Outpatient JUAN RIGGS, JUDY Preston [facility] SDC LEFT EYE CATARACT [id number] 08/23/2018 05:38:00 08/23/2018 23:59:59 CLS Outpatient JUDY MARTINEZ MD [facility] PREOP LEFT CATARACT EXT. [id number] 11/27/2016 13:33:00 11/27/2016 23:59:59 CLS Outpatient DIAZ HUNG L QUOTATION CHECKER [facility] LAB FATIGUE, MYALGIA, HEADAHCE, TICK BITE [id number] 11/15/2016 13:23:00 11/15/2016 23:59:59 CLS Outpatient ERIN ORNELAS RABBLE FURNACE TENDER [facility] RAD RTC PARTIAL RIGHT M75.111 [id number] 09/01/2015 20:55:00 09/02/2015 06:15:00 DIS Outpatient JAYJAY BHANDARI QUOTATION CHECKER [facility] SLEEP SNORING HTN [id number] 07/31/2013 08:31:00 07/31/2013 23:59:59 CLS Outpatient ERIN ORNELAS RABBLE FURNACE TENDER [facility] RAD LFT KNEE TORN LMM [id number] 11/15/2016 13:23:00 Document Registration [id number] 08/14/2012 12:50:00 Document Registration [id number] 07/14/2012 08:14:00 Document Registration [id number] 07/12/2012 10:00:00 Document Registration [id number] 12/27/2017 13:20:00 12/27/2017 23:59:00 DIS Outpatient Iker Soto [id number] 07/11/2017 15:22:00 07/11/2017 23:59:00 DIS Outpatient Tiffany Reddy [id number] 01/22/2017 19:49:00 01/22/2017 21:14:00 DIS Outpatient Quentin Inman [id number] 11/06/2016 19:38:00 11/06/2016 20:26:00 [id number] 08/03/2016 11:53:00 08/03/2016 23:59:00 DIS Outpatient Iker Soto [id number] 06/07/2016 14:14:00 06/07/2016 23:59:00 DIS Outpatient Tiffany Reddy [id number] 05/14/2016 11:23:00 05/14/2016 23:59:00 DIS Outpatient Iker Soto [id number] 01/22/2017 21:31:45 Document Registration
== END 2018-08-25 08:50 | disposition home or self-care (01) ==
LOC: SDC 07:21
PROVIDERS: ATTEND Specialist
DX: H25.12 Age-related nuclear cataract, left eye (principal); E11.36 Type 2 diabetes mellitus with diabetic cataract; I10 Essential (primary) hypertension; E03.9 Hypothyroidism, unspecified; F32.9 Major depressive disorder, single episode, unspecified; Z79.4 Long term (current) use of insulin; Z79.899 Other long term (current) drug therapy

== ENCOUNTER → 2018-09-12 | Outpatient (CLI) | payer MEDICARE, OTHER | END | disposition home or self-care (01) | LOC: PREOP 05:37 | PROVIDERS: ATTEND Specialist | DX: Z01.818 Encounter for other preprocedural examination (principal) ==

== ENCOUNTER 2018-09-15 07:05 | Day surgery (SDC) | payer MEDICARE, OTHER ==
[~2018-09-15] VITALS: Ht 175.3 cm; Wt 97.5 kg
[2018-09-15] MEDS ORDERED: MOXIFLOXACIN OPHTH SOLN 5 MG/ML 0.3 ML SYRINGE OP ONE (07:15)
[2018-09-15] MEDS ORDERED: TIMOLOL MALEATE 0.5% 5 ML (TIMOPTIC) BTL OU PRN (07:15)
[2018-09-15] MEDS ORDERED: LIDOCAINE PF 1% 2 ML AMP IR PRN (07:15)
[2018-09-15] MEDS ORDERED: POVIDONE (BETADINE) OPHTH SOLN 5% 30 ML OP ONE (07:15)
[2018-09-15] MEDS: TETRACAINE 0.5% OPHTH SOLN 4 ML BTL (SINGLE DOSE ONLY) OU PRN ×3 (07:17→07:34)
[2018-09-15 07:19] VITALS: BP 129/70
[2018-09-15] MEDS: CYCLOPENTOLATE 1% (CYCLOGYL) 2 ML DROPS OP SCH ×3 (07:24→07:34)
[2018-09-15] MEDS: PHENYLEPHRINE 10% OPHTH (NEO-SYN) 5 ML BTL OU SCH ×3 (07:24→07:34)
[2018-09-15] MEDS ORDERED: MIDAZOLAM 2 MG/2 ML (VERSED) VIAL ONE (07:32)
--- NOTE | 2018-09-15 07:48 | Ophthalmologist Pre-Op Note ---
Pre-Operative Progress Note H&P Reviewed The H&P was reviewed, patient examined and no changes noted. Date H&P Reviewed: Sep 15, 2018 Time H&P Reviewed: 07:48 Pre-Op Dx Cataract, Right Eye JUDY MARTINEZ MD Sep 15, 2018 07:48
--- NOTE | 2018-09-15 08:09 | Ophthalmology Operative Report ---
Cataract removal/placement IOL PREOPERATIVE DIAGNOSIS: Cataract Right Eye POSTOPERATIVE DIAGNOSIS: Cataract Right Eye PROCEDURE: Cataract removal and placement of posterior chamber implant, right eye SURGEON: Kirk Martinez ANESTHESIA: Topical with sedation COMPLICATIONS: None ESTIMATED BLOOD LOSS: Minimal DESCRIPTION OF PROCEDURE: After proper informed consent was obtained, the patient, a 68 female, was taken to the Operating Room and the right eye was anesthetized with tetracaine. The right eye was then prepped and draped in the usual manner. A wire lid speculum was placed. A paracentesis was made at the left hand position. Preservative free lidocaine was injected into the anterior chamber followed by viscoelastic. A clear corneal incision was made in the temporal position. A capsulorrhexis was preformed and the central nuclear and cortical material were removed. The posterior capsule was polished and Mainor 22.5 [id number] IOL was placed into the capsular bag. The residual viscoelastic was aspirated and balanced saline solution was injected into the anterior chamber. Moxifloxacin was injected into the anterior chamber. The wound was checked and found to be water tight. The patient tolerated the procedure well without complications. KIRK MARTINEZ MD Sep 15, 2018 08:09
[2018-09-15 08:19] VITALS: BP 116/65
[2018-09-15] MEDS ORDERED: acetaZOLAMIDE ER 500 MG CAP (DIAMOX SEQUELS) PO ONE (08:30)
--- NOTE | 2018-09-15 10:14 | Anesthesia-General Post-Op ---
MAC Patient Condition Mental Status/LOC: Same as Preop Cardiovascular: Satisfactory Nausea/Vomiting: Absent Respiratory: Satisfactory Pain: Controlled Complications: Absent Post Op Complications Complications None Follow Up Care/Instructions Patient Instructions None needed. Anesthesiology Discharge Order Discharge Order Patient is doing well, no complaints, stable vital signs, no apparent adverse anesthesia problems. No complications reported per nursing. JAXON BRICENO CRNA Sep 15, 2018 10:14
== END 2018-09-15 08:19 | disposition home or self-care (01) ==
LOC: SDC 07:05
PROVIDERS: ATTEND Specialist
DX: H25.11 Age-related nuclear cataract, right eye (principal); E11.36 Type 2 diabetes mellitus with diabetic cataract; I10 Essential (primary) hypertension; E03.9 Hypothyroidism, unspecified; F32.9 Major depressive disorder, single episode, unspecified; Z79.4 Long term (current) use of insulin; Z79.899 Other long term (current) drug therapy

== ENCOUNTER → 2019-07-04 | Outpatient (CLI) | payer MEDICARE, OTHER ==
[~2019-07-04] MED LIST changes: -DULO60CA58 PO; +DULO60CA59 PO
--- NOTE | 2019-07-04 10:38 | Diagnostic Imaging Report ---
PROCEDURE: MRI lumbar spine. TECHNIQUE: Multiplanar, multisequence MRI of the lumbar spine was performed without contrast. INDICATION: Bilateral hip pain. Bilateral leg pain. COMPARISON: 06/14/2007 FINDINGS: For the purposes of this exam, last well-formed disc space is noted to be L5-S1 level. Static alignment is maintained. There is no significant garfield or retrolisthesis. There is no evidence of jumped facets. Vertebral body heights are maintained. There is no evidence of acute fracture. Marrow signal is normal throughout. There is mild multilevel intervertebral disc height loss. Visualized portions of the distal cord are unremarkable. Conus terminates at approximately the L1 level. No abnormal intrathecal filling defects are seen. Pre and paravertebral soft tissue structures are unremarkable. Axial images demonstrate the following: T12-L1: There is no large disc bulge or focal protrusion. There is no significant spinal canal or neural foraminal stenosis. L1-L2: There is mild broad-based posterior disc bulge, slightly eccentric to the right. As a result, there is mild narrowing of the spinal canal and right neural foramen. Left neural foramen is unremarkable. L2-L3: There is mild broad-based posterior disc bulge and bilateral ligamentum flavum laxity and facet arthropathy. As a result, there is minimal narrowing of the spinal canal and bilateral neural foramen. L3-L4: There is small right paracentral posterior disc protrusion superimposed on broad-based posterior disc bulge as well as bilateral ligamentum flavum laxity and facet arthropathy. As a result, there is [id number] narrowing of the spinal canal and mild narrowing of the bilateral neural foramen. L4-L5: There is broad-based posterior disc bulge and bilateral ligamentum flavum laxity and facet arthropathy. As a result, there is mild narrowing of the spinal canal and bilateral neural foramen. L5-S1: There is no large disc bulge or focal protrusion. There is bilateral facet arthropathy, but no significant spinal canal or neural foraminal stenosis. IMPRESSION: 1. Interval progression of mild multilevel degenerative changes of the lumbar spine, greatest at the L3-L4 level as above. 2. No acute fracture or dislocation. Dictated by: Dictated on workstation # [id number]
== END ==
LOC: RAD 08:20
PROVIDERS: ATTEND Nurse Practitioner Family
DX: M51.36 Other intervertebral disc degeneration, lumbar region (principal); M99.03 Segmental and somatic dysfunction of lumbar region; M48.061 Spinal stenosis, lumbar region without neurogenic claudication; M47.816 Spondylosis without myelopathy or radiculopathy, lumbar region; M51.26 Other intervertebral disc displacement, lumbar region
CPT/HCPCS: 72148

== ENCOUNTER → 2020-08-01 | Outpatient (CLI) | payer MEDICARE, OTHER ==
--- NOTE | 2020-08-01 10:59 | Diagnostic Imaging Report ---
PROCEDURE: CT abdomen and pelvis without contrast. TECHNIQUE: Multiple contiguous axial images were obtained through the abdomen and pelvis without the use of intravenous contrast. Auto Exposure Controls were utilized during the CT exam to meet ALARA standards for radiation dose reduction. INDICATION: Left lower quadrant pain for several months. COMPARISON: No prior studies are available for comparison. FINDINGS: Lung bases are clear. No discrete liver mass is detected. Gallbladder is unremarkable. No biliary ductal dilatation is seen. The pancreas and spleen are unremarkable. No adrenal mass is identified. No definite renal calculi or hydronephrosis is seen. Aorta is non-aneurysmal. The small and large bowel loops appear to be normal caliber. There is extensive diverticulosis of the sigmoid and descending colon but no evidence of acute diverticulitis. There is moderate stool throughout the colon. No free fluid or fluid collection is identified. Bladder is decompressed. The uterus is unremarkable. Bony structures are nonacute. IMPRESSION: 1. Uncomplicated diverticulosis. No acute feature in the abdomen or pelvis is identified. Dictated by: Dictated on workstation # [id number]
== END ==
LOC: RAD 09:33
PROVIDERS: ATTEND Surgery
DX: K57.30 Diverticulosis of large intestine without perforation or abscess without bleeding (principal)
CPT/HCPCS: 74176

== ENCOUNTER → 2021-07-10 | Outpatient (CLI) | payer MEDICARE | LOC: LAB FS 11:02 | PROVIDERS: ATTEND Podiatrist | DX: Z01.812 Encounter for preprocedural laboratory examination (principal); Z20.822 Contact with and (suspected) exposure to COVID-19 | CPT/HCPCS: 87635 ==